=== PATIENT | female | born 1935 | race African-American/Black ===

== ENCOUNTER 2023-11-19 13:33 | Emergency (ER) | payer OTHER ==
[~2023-11-19] VITALS: Ht 167.6 cm; Wt 70.0 kg
[2023-11-19 13:43] VITALS: O2SAT 100
[2023-11-19 17:49] LABS: BASOPHILS % 0.4 % (0.0-2.0); HEMATOCRIT. 40.8 % (36.0-48.0); HEMOGLOBIN. 13.3 g/dL (12.0-16.0); LYMPHOCYTES % 20.4 % (20.0-50.0); MEAN CORPUSCULAR HEMOGLOBIN 30.3 pg (28.0-32.0); MEAN CORPUSCULAR HGB CONC 32.7 g/dL (31.0-37.0); MEAN CORPUSCULAR VOLUME 92.9 fL (81.0-99.0); MEAN PLATELET VOLUME 9.4 fl (7.4-10.4); MONOCYTES % 7.8 % (2.0-8.0); NEUTROPHILS % 70.4 % (40.0-76.0); PLATELET 142 x1000/uL (130-400); RED CELL DISTRIBUTION WIDTH 14.3 % (11.6-14.6); WHITE BLOOD COUNT 6.3 x1000/uL (4.5-11.0)
[2023-11-19 17:57] LABS: CARBON DIOXIDE 28 mEq/L (21-32); CHLORIDE 104 mEq/L (98-107); INR 1.2; POTASSIUM 3.5 mEq/L (3.5-5.1); PROTHROMBIN TIME 12.9 sec (9.6-11.0); SODIUM 139 mEq/L (136-145)
[2023-11-19 17:58] LABS: CALCIUM 9.7 mg/dL (8.7-10.4)
[2023-11-19 18:02] LABS: GLUCOSE 181 mg/dL (70-105)
[2023-11-19 18:03] LABS: TROPONIN I HIGH SENSITIVITY 26 ng/L (3.0-34); UREA NITROGEN BLOOD 20 mg/dL (9-23)
[2023-11-19 18:04] LABS: ALANINE AMINOTRANSFERASE 13 IU/L (10-49); ASPARTATE AMINOTRANSFERASE 19 IU/L (<34)
[2023-11-19 18:05] LABS: ALBUMIN 4.1 g/dL (3.2-4.8); BILIRUBIN TOTAL 0.5 mg/dL (0.1-1.0); PROTEIN TOTAL 7.3 g/dL (6.0-8.3)
[2023-11-19 20:28] VITALS: BP 206/77; PULSE 54; RESP 17; TEMP 37.11408; O2SAT 96
== END 2023-11-19 20:29 | disposition left against medical advice (07) ==
LOC: ER 14:11
DX: R55 Syncope and collapse (principal); E11.9 Type 2 diabetes mellitus without complications; I10 Essential (primary) hypertension
CPT/HCPCS: 36415; 71045; 80053; 84484; 85025; 93005; 99285